=== PATIENT | female | born 1945 | race Caucasian/White ===

== ENCOUNTER → 2016-06-12 | Outpatient (CLI) | payer MEDICARE, BC ==
--- NOTE | 2016-06-12 22:29 | WWHP ---
DATE OF SERVICE: 06/12/2016 CHIEF COMPLAINT: The patient is here for her routine gynecologic exam. HPI: This is a 70-year-old G4, P3-0-1-3 with an LMP of approximately 2000. The patient states she has been experiencing some vulvar soreness. She has also noticed a small amount of mucus from the vagina, but denies any vaginal bleeding. She denies itching. She states this can come and go. She has not been sexually active for about 2 years. She says the vulvar lips around the vagina can be slightly red and she denies any white patches or white areas. She has noticed of these symptoms mostly this winter. Her last pelvic exam was more than 5 years ago. Last mammogram was done during the summer of 2015. She states this was normal. PAST MEDICAL HISTORY: Hypothyroidism, and chronic hypertension. She currently does not have a primary care physician. Her pattern room attendant is Dr. Paulson. MEDICATIONS: 1. Levothyroxine 75 mcg daily. 2. Atenolol 50 mg b.i.d. 3. Losartan. 4. Potassium 50 mg daily. 5. Potassium supplement 8 mEq daily. ALLERGIES: No known drug allergies. PAST SURGICAL HISTORY: Cholecystectomy 2010, cataract surgery 2007, tonsillectomy as a child. Colonoscopy 2011. Past OB history: 3 vaginal deliveries and one spontaneous . 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 SOCIAL HISTORY: She denies tobacco, alcohol, and drug use. She has been since 1999 and has not been sexually active since about 2013. She is retired. FAMILY HISTORY: Sister and maternal grandmother had breast cancer. Maternal aunt had uterine cancer. Both parents and brothers have or had diabetes. REVIEW OF SYSTEMS: Weight has been stable. She denies respiratory, cardiac, or GI problems. She denies maltreatment or falling. : She denies any significant problems with urinary leakage. PHYSICAL EXAM: Blood pressure initially was 195/80. Repeat blood pressure 164/84. Height 5 feet 5 inches. Weight 156 pounds. Temperature 97.5, pulse 75. This a well-developed, well-nourished white female who is alert and oriented x3 in no acute distress. HEENT is within normal limits. NECK: Supple without mass or thyromegaly. CHEST AND LUNGS: Clear to auscultation. HEART: Regular rate and rhythm. Breasts are without mass or discharge. Axillary exam is negative for adenopathy. BACK: Negative for CVA tenderness. ABDOMEN: Soft, nontender, without palpable masses. PELVIC EXAM: External genitalia reveals moderate air at moderate atrophy without lesions. The vulva is slightly erythematous. There is no leukoplakia noted. Cervix and vagina reveal mild to moderate atrophy without lesions. There is no evidence of prolapse. There is no unusual discharge. The uterus is midposition, nongravid size and nontender. There are no palpable adnexal masses or tenderness. Rectovaginal exam is negative for mass or tenderness and is negative for occult blood. EXTREMITIES: Nontender. IMPRESSION: 1. A 70-year-old menopausal female with vulvar symptoms consisting of soreness and mild erythema. This is probably secondary to atrophic changes and dry air-conditions may also be contributing to this. 2. Hypertension. PLAN: 1. Pap smear was performed. 2. Self-Breast examination was discussed. 3. The patient will be due for a mammogram later in the year. 4. Trial of Premarin vaginal cream, which she will use 1 to 2 grams intravaginally and to the external genitalia twice weekly. I have also recommended that she try to humidify the air with a humidifier and to increase fluid intake. The patient was instructed to call if her symptoms are not improving or if problems. We can consider a vulvar biopsy if her symptoms are not improving. 5. Osteoporosis prevention was discussed. I have recommended bone density screening. She states she would like to do this next year. 6. She is instructed to follow up with Dr. Paulson regarding her elevated blood pressure. She is aware that her blood pressure is elevated. She will also do home blood pressure checks and will follow up with Dr. Paulson as needed for blood pressure and heart conditions. 7. She will return in one year.
== END | disposition home or self-care (01) ==
LOC: WWCWWP 10:35
PROVIDERS: ATTEND Obstetrics & Gynecology

== ENCOUNTER → 2018-05-20 | Outpatient (CLI) | payer MEDICARE, BC ==
--- NOTE | 2018-05-20 14:52 | BD ---
EXAMINATION TYPE: Axial Bone Density DATE OF EXAM: 05/20/2018 COMPARISON: NONE CLINICAL HISTORY: Osteopenia screening. Postmenopausal female. Height: 65.5 Weight: 150.5 FRAX RISK QUESTIONS: Alcohol (3 or more units per day): no Family History (Parent hip fracture): no Glucocorticoids (More than 3mos): no (Ex: prednisone, prednisolone, methylprednisolone, dexamethasone, and hydrocortisone). History of Fracture in Adulthood: no Secondary Osteoporosis: 1. Type 1 Diabetes: no 2. Hyperthyroidism: no 3. Menopause before 45: no 4. Malnutrition: no 5. Chronic liver disease: no Rheumatoid Arthritis: no Current Tobacco Use: no RISK FACTORS HISTORY OF: Family History of Osteoporosis: no Active: yes Diet low in dairy products/other sources of calcium: no Postmenopausal woman: age 55 MEDICATIONS:blood pressure, diabetic med Thyroid Medications: thyroid How Lon years Additional History: EXAM MEASUREMENTS: Bone mineral densitometry was performed using the [employer] System. Bone mineral density as measured about the Lumbar spine is: ----- L1-L4(G/cm2): 1.149 T Score Values are as follows: ----- L2: -1.0 ----- L3: 0.4 ----- L4: 0.2 ----- L1-L4: -0.3 Bone mineral density : baseline Bone mineral density about the R hip (g/cm2): 0.767 Bone mineral density about the L hip (g/cm2): 0.795 T Score values are as follows: -----R Neck: -1.9 -----L Neck: -1.7 -----R Total: -1.2 -----L Total: -0.4 Bone mineral density: baseline IMPRESSION: Osteopenia (T Score between -2.5 and -1). There is slightly increased risk of fracture and the patient may be considered for treatment. Re-Screen 2-5 years. NOTE: T-SCORE=SD OF THE YOUNG ADULT MEAN.
--- NOTE | 2018-06-04 13:29 | MM ---
Reason for exam: screening (asymptomatic). History: Patient is postmenopausal. Family history of breast cancer in sister at age 65 and breast cancer in maternal grandmother. MG Screening Mammo w CAD Bilateral CC and MLO view(s) were taken. The breast tissue is heterogeneously dense. This may lower the sensitivity of mammography. There are benign round vascular calcifications. There is a focal asymmetry upper out right breast posterior third. ASSESSMENT: Incomplete: need additional imaging evaluation, BI-RAD 0 RECOMMENDATION: Special view mammogram of the right breast.
== END | disposition home or self-care (01) ==
LOC: RADMAMWWP 11:38
PROVIDERS: ATTEND Family Medicine
DX: Z12.31 Encounter for screening mammogram for malignant neoplasm of breast (principal); M85.80 Other specified disorders of bone density and structure, unspecified site
CPT/HCPCS: 77067; 77080

== ENCOUNTER → 2018-06-18 | Outpatient (CLI) | payer MEDICARE, BC ==
--- NOTE | 2018-06-19 10:48 | MM ---
Reason for exam: additional evaluation requested from abnormal screening. Last mammogram was performed 1 month ago. History: Patient is postmenopausal. Family history of breast cancer in sister at age 65 and breast cancer in maternal grandmother. Physical Findings: Nurse did not find any significant physical abnormalities on exam. MG 3D Work Up W/Cad RT CC and MLO view(s) were taken of the right breast. Prior study comparison: May 20, 2018, bilateral MG screening mammo w CAD. Density persists 7cm from nipple upper outer quadrant right breast. These results were verbally communicated with the patient and result sheet given to the patient on 06/18/18. ASSESSMENT: Incomplete: need additional imaging evaluation, BI-RAD 0 RECOMMENDATION: Ultrasound of the right breast.
--- NOTE | 2018-06-19 10:50 | USB ---
Reason for exam: additional evaluation requested from abnormal screening. History: Patient is postmenopausal. Family history of breast cancer in sister at age 65 and breast cancer in maternal grandmother. US Breast Workup Limited RT Right limited breast ultrasound including focal area of concern, retroareolar and axilla demonstrates a 0.8 x 0.5 x 1.0cm oval, irregular, solid, hypoechoic lesion at 10 o'clock. These results were verbally communicated with the patient and result sheet given to the patient on 06/18/18. ASSESSMENT: Suspicious, BI-RAD 4 RECOMMENDATION: Ultrasound core biopsy of the right breast. Called Dr. Chan with mammographic findings and has scheduled an appointment for the patient for 06/25/18 at 11:[address] Sood. Biopsy scheduled for 2:00. PRELIMINARY REPORT CALLED AND FAXED TO DR. SOOD ON 06/18/18.
== END | disposition home or self-care (01) ==
LOC: RADMAMWWP 14:48
PROVIDERS: ATTEND Family Medicine
DX: R92.8 Other abnormal and inconclusive findings on diagnostic imaging of breast (principal)
CPT/HCPCS: 77065; 76642; G0279; 77061

== ENCOUNTER → 2018-06-25 | Outpatient (CLI) | payer MEDICARE, BC ==
[2018-06-25 12:03] VITALS: BP 172/65; PULSE 56; RESP 18; TEMP 97.9; BMI 25.0
--- NOTE | 2018-06-25 12:43 | P.GSHP ---
History of Present Illness H&P Date: 06/25/18 Chief Complaint: abnormal mammogram and ultrasound of the right breast The patient is a 72-year-old white female who states that on a routine mammogram she was noted to have an area of concern in the right breast. Additional views of the right breast were then performed which led to an ultrasound of the right breast. On the ultrasound 8.8 x 0.5 cm irregular solid lesion was noted at 10:00. The patient does not feel anything of concern in her breasts. There is no nipple discharge or skin changes of concern. Patient has no recent trauma or infection in her breast. Family history: maternal grandmother: breast cancer in 60's sister: breast cancer in 60's Hormonal History: menarche: 14 : 4, 3 children 1 miscarrage, breast fed: yes, first born at 18 menopause: 55 BCP: 10 years hormones: none Past Surgical History: 1. gallbaldder 2. cataract Past Medical History: 1. HTN 2. Hypothyroid Social History: smoke: none alcohol: occasionally drugs: none - Constitutional Constitutional: Denies chills, Denies fever - EENT Comment: cataract surgery wears glasses Eyes: denies blurred vision, denies pain Ears: bilateral: decreased hearing (wears hearing aids), deny: tinnitus Ears, nose, mouth and throat: Denies headache, Denies sore throat - Breasts Breasts: bilateral: as per HPI - Cardiovascular Cardiovascular: Reports high blood pressure - Respiratory Respiratory: Denies cough, Denies 7 - Gastrointestinal Comment: had recent colon evaluation via cologuard Gastrointestinal: Reports diarrhea, Denies abdominal pain, Denies nausea, Denies vomiting - Genitourinary (Female) Genitourinary: Denies dysuria, Denies hematuria - Menstruation Menstruation: Reports postmenopausal - Musculoskeletal Musculoskeletal: Denies myalgias - Integumentary Integumentary: Denies pruritus, Denies rash - Neurological Neurological: Denies numbness, Denies weakness - Psychiatric Psychiatric: Denies anxiety, Denies depression - Endocrine Comment: hypothyroid diabetes - Hematologic/Lymphatic Comment: none - Allergic/Immunologic Allergic/Immunologic: Reports as per HPI, Reports seasonal allergies Past Medical History Past Medical History: Diabetes Mellitus, Thyroid Disorder History of Any Multi-Drug Resistant Organisms: None Reported Past Surgical History: Cholecystectomy Past Anesthesia/Blood Transfusion Reactions: No Reported Reaction Past Psychological History: No Psychological Hx Reported Smoking Status: Never smoker Past Alcohol Use History: Occasional Past Drug Use History: None Reported - Past Family History Sister(s) Family Medical History: Cancer Additional Family Medical History / Comment(s): breast cancer Medications and Allergies Home Medications Medication Instructions Recorded Confirmed Type Atenolol [Tenormin] 1 tab PO BID 06/18/18 06/25/18 History Calcium Carbonate/Vitamin D3 1 each PO DAILY 06/18/18 06/25/18 History [Calcium 500-Vit D3 200 Tablet] Fish Oil/Dha/Epa [Fish Oil 1,200 1 each PO DAILY 06/18/18 06/25/18 History mg Fish Oil] Levothyroxine Sodium [Synthroid] 75 mcg PO DAILY 06/18/18 06/25/18 History Losartan [Cozaar] 100 mg PO BID 06/18/18 06/25/18 History Multivit-Min/Iron/Folic/Lutein 1 each PO DAILY 06/18/18 06/25/18 History [Centrum Silver Women Tablet] Niacin 250 mg PO DAILY 06/18/18 06/25/18 History Potassium Chloride 8 meq PO DAILY 06/18/18 06/25/18 History metFORMIN HCL ER [Glucophage Xr] 500 mg PO DAILY 06/18/18 06/25/18 History Allergies Allergy/AdvReac Type Severity Reaction Status Date / Time No Known Allergies Allergy Verified 06/25/18 12:03 Surgical - Exam Vital Signs Temp Pulse Resp BP Pulse Ox 97.9 F 56 L 18 172/65 97 06/25/18 11:56 06/25/18 11:56 06/25/18 11:56 06/25/18 11:56 06/25/18 11:56 - General well developed, well nourished, no distress - Eyes normal ocular movement - ENT no hearing loss, no congestion - Neck no masses, trachea midline - Respiratory normal respiratory effort, clear to auscultation - Cardiovascular Rhythm: regular Heart Sounds: normal: S1, S2 - Abdomen Abdomen: soft, non tender, no guarding, no rigid, no rebound - Integumentary normal turgor - Neurologic no disoriented, no combative - Musculoskeletal normal gait, normal posture - Psychiatric oriented to time, oriented to person, oriented to place, speech is normal, memory intact Breast examination: Right breast: Multi-positional exam no dominant masses or nodules of concern Right axilla: No adenopathy of concern Left breast: Multi-positional exam dominant masses or nodules of concern Left axilla: No adenopathy of concern Results Mammogram and ultrasound results reviewed Assessment and Plan Assessment: Impression: 1. Radiographic abnormality right breast, abnormal mammogram and ultrasound 2. Hypertension 3. Diabetes 4. Hypothyroid 5. Status post cholecystectomy Plan: 1. Right breast ultrasound-guided core biopsy 2. Medical management of medical conditions 3. Follow-up in 1 week after ultrasound core biopsy Cc: Dr. Chan
== END ==
LOC: WWCWWP 11:05
PROVIDERS: ATTEND Surgery
DX: Z53.9 Procedure and treatment not carried out, unspecified reason (principal)

== ENCOUNTER → 2018-06-25 | Day surgery (SDC) | payer MEDICARE, BC ==
[2018-06-25 13:26] VITALS: RESP 16; BMI 25.0
[2018-06-25 14:42] VITALS: BP 148/75; PULSE 57; TEMP 97.6
--- NOTE | 2018-06-25 16:16 | USB ---
EXAMINATION TYPE: US biopsy breast VAD RT DATE OF EXAM: 06/25/2018 CLINICAL HISTORY: R92.8 ABN NELLIE. TECHNIQUE: Ultrasound guided core biopsy of right breast. COMPARISON: 06/18/2018 ultrasound FINDINGS: The procedure of ultrasound guided core biopsy was explained to the patient. Benefits, alternatives, and risks were discussed. An informed consent was then obtained. Timeout was performed. The patient was placed in supine positioning for imaging and for the procedure. The overlying skin was prepped and draped in usual sterile fashion. Lidocaine buffered with bicarbonate was used as anesthetic into the skin and subcutaneous tissue up to area of concern in the right breast. A chidi was made with surgical scalpel. Under ultrasound guidance, a 12-gauge vacuum assisted biopsy gun device was used to obtain 4 core samples. Following this, a biopsy clip was left in lesion. Post procedure mammogram was obtained. Clip is in the upper outer quadrant right breast. IMPRESSION: 1. Successful ultrasound-guided core biopsy right breast lesion. Recommendations: 1. Recommendations are pending pathology results. Pathology Results: Benign RIGHT BREAST AT 10:00 POSITION, BIOPSIES: Dense fibrous breast parenchyma and benign glandular components consistent with fibrocystic spectrum disease. Recommendation Follow up mammogram of the right breast in 6 months. KIANNA
--- NOTE | 2018-06-25 16:17 | MM ---
EXAMINATION TYPE: US biopsy breast VAD RT DATE OF EXAM: 06/25/2018 CLINICAL HISTORY: R92.8 ABN NELLIE. TECHNIQUE: Ultrasound guided core biopsy of right breast. COMPARISON: 06/18/2018 ultrasound FINDINGS: The procedure of ultrasound guided core biopsy was explained to the patient. Benefits, alt ernatives, and risks were discussed. An informed consent was then obtained. Timeout was performed. The patient was placed in supine positioning for imaging and for the procedure. The overlying skin w as prepped and draped in usual sterile fashion. Lidocaine buffered with bicarbonate was used as anes thetic into the skin and subcutaneous tissue up to area of concern in the right breast. A chidi was m gerardo with surgical scalpel. Under ultrasound guidance, a 12-gauge vacuum assisted biopsy gun device was used to obtain 4 core lara ples. Following this, a biopsy clip was left in lesion. Post procedure mammogram was obtained. Clip is in the upper outer quadrant right breast. IMPRESSION: 1. Successful ultrasound-guided core biopsy right breast lesion. Recommendations: 1. Recommendations are pending pathology results.
== END ==
LOC: RADUSWWP 13:04
PROVIDERS: ATTEND Surgery
DX: R92.8 Other abnormal and inconclusive findings on diagnostic imaging of breast (principal)
CPT/HCPCS: 88305; 77065; 19083; A4648; J2001

== ENCOUNTER → 2018-07-02 | Outpatient (CLI) | payer MEDICARE, BC ==
[2018-07-02 16:37] VITALS: BP 150/68; PULSE 60; RESP 18; TEMP 97.9; BMI 24.1
--- NOTE | 2018-07-03 10:03 | P.PN ---
Subjective Progress Note Date: 07/02/18 Principal diagnosis: Biopsy The patient is a 72-year-old white female who is status post a right breast ultrasound core biopsy and . Pathology revealed dense fibrous breast parenchyma and benign glandular components consistent with fibrocystic spectrum disease. The patient's ultrasound done at the time of the core biopsy was reviewed with radiology. There was some concern that the area targeted was adequately sampled. Secondary to the fact that the patient is not benign specific there was concern that this may be discordant with radiographic findings. The patient and her were given the option of a repeat core biopsy but they wished the area to be excised instead and have opted for a needle local and excisional biopsy. The patient preprocedure did not feel anything of concern in her breast there was no nipple discharge or skin changes of concern. The initial lesion have been described as a 0.8 x 0.5 x 1 cm irregular solid lesion at 10:00. The patient had had no recent trauma or infection in her breast. Family history: Paternal grandmother: Breast cancer in 60s Sr.: Breast cancer in 60s Hormonal history: Menarche: 14 : 4, 3 children one miscarriage, press-fit: Yes first. 18 Menopause: 55 control pills: 10 years Hormones: None Past surgical history: 1. Cholecystectomy 2. Cataract surgery Past medical history 1. Hypertension 2. Hypothyroidism Social history: Smoke: Negative Alcohol: Occasionally Drugs: Negative Review of systems: Constitutional no fever or chills HEENT decreased hearing with hearing aids Cardiovascular: Hypertension Respiratory: Negative GI: Negative : Postmenopausal Musculoskeletal: Negative Neurologic: Negative Psychiatric: Negative Endocrine: Hypothyroid, diabetes Objective - Vital Signs Vital signs: Vital Signs Temp 97.9 F 07/02/18 16:28 Pulse 60 07/02/18 16:28 Resp 18 07/02/18 16:28 BP 150/68 07/02/18 16:28 Pulse Ox 98 07/02/18 16:28 Intake & Output 07/02/18 07/03/18 07/03/18 18:59 06:59 18:59 Weight 65.771 kg - Exam BMI 24.1 - Constitutional General appearance: Present: average body habitus - EENT Eyes: Present: EOMI ENT: Present: hard of hearing - Neck Neck: Present: normal ROM - Respiratory Respiratory: bilateral: CTA - Cardiovascular Rhythm: regular Heart sounds: normal: S1, S2 - Gastrointestinal General gastrointestinal: Present: soft - Musculoskeletal Musculoskeletal: Present: gait normal - Psychiatric Psychiatric: Present: A&O x's 3, appropriate affect, intact judgment & insight - Additional findings Additional findings: Right breast exam: Area of core biopsy clean and dry no evidence of any infection Assessment and Plan Assessment: Impression: 1. Patient status post core biopsy right breast pathology felt to be discordant with radiographic findings 2. Patient with history of diabetes 3. History of hypo thyroid 4. Hypertension 5. Status post cholecystectomy Plan: 1. Right breast needle local and excisional biopsy secondary to discordant area in the right breast 2. Medical management of medical conditions Cc: Dr. Chan
== END | disposition home or self-care (01) ==
LOC: WWCWWP 16:08
PROVIDERS: ATTEND Surgery
DX: Z53.9 Procedure and treatment not carried out, unspecified reason (principal)

== ENCOUNTER 2018-07-21 08:08 | Day surgery (SDC) | payer MEDICARE, BC ==
[2018-07-20 08:54] VITALS: BMI 24.5
[~2018-07-21 08:08] MED LIST: HEPARIN SODIUM,PORCINE 5,000 UNIT/ML 1 ML VIAL SQ ONE; Pre Op ABX Message 1 EACH MISC MISCELLANE ONE
[2018-07-21 08:43] VITALS: RESP 16
[2018-07-21 08:53] LABS: Glucose,Whole Blood 133 mg/dL (75-99)
[2018-07-21] MEDS ORDERED: LACTATED RINGERS 1,000 ML IV ONE (08:57)
[2018-07-21] MEDS ORDERED: ONDANSETRON 4 MG/2 ML VIAL IVP ONE (08:58)
[2018-07-21] MEDS ORDERED: DEXAMETHASONE SOD PHOS (MDV) 100 MG/10 ML VIAL IVP ONE (08:58)
[2018-07-21] MEDS ORDERED: ALPRAZolam 0.25 MG TAB PO ONE (08:58)
[2018-07-21] MEDS ORDERED: LIDOCAINE 1% INJ 10MG/ML (20 ML MDV) SQ ONE ×3 (09:40→12:04)
[2018-07-21] MEDS ORDERED: SODIUM BICARB 4% 5 ML VIAL (0.48 MEQ/ML) MISCELLANE ONE (09:40)
[2018-07-21] MEDS ORDERED: HEPARIN SODIUM,PORCINE 5,000 UNIT/ML 1 ML VIAL SQ ONE (10:58)
[2018-07-21] MEDS ORDERED: LIDOCAINE 1% INJ 10MG/ML (20 ML MDV) ONE (11:24)
[2018-07-21] MEDS ORDERED: ePHEDrine SULFATE/0.9% NACL/PF 50 MG/5 ML SYRINGE IV ONE (11:24)
[2018-07-21] MEDS ORDERED: fentaNYL (PF) 50 MCG/ML 2 ML AMP ONE (11:24)
[2018-07-21] MEDS ORDERED: SUCCINYLCHOLINE CHLORIDE 100 MG/5 ML SYR IV ONE (11:24)
[2018-07-21] MEDS ORDERED: PROPOFOL 10 MG/ML 20 ML VIAL IV ONE (11:24)
[2018-07-21] MEDS ORDERED: MIDAZOLAM 2 MG/2 ML VIAL ONE (11:24)
--- NOTE | 2018-07-21 12:20 | P.OP ---
Date of Procedure: 07/21/18 Preoperative Diagnosis: Discordant needle biopsy right breast Postoperative Diagnosis: Same Procedure(s) Performed: Needle localization excisional biopsy right breast Anesthesia: DALE Surgeon: Amber Sood Estimated Blood Loss (ml): 5 IV fluids (ml): 400 Pathology: other (breast tissue) Condition: stable Disposition: PACU Indications for Procedure: Core biopsy right breast discordant from radiographic findings Operative Findings: Dense breast tissue Description of Procedure: The patient is a 72-year-old white female who is status post ultrasound-guided core biopsy of an area of concern in the right breast. The lesion was benign but felt to be discordant from the radiographic findings. After discussion with radiology was recommended she undergo needle localization and excisional biopsy of the area of concern. Following needle localization of area of concern the patient was brought to the operating room. Following induction of general anesthesia the right breast was prepped and draped in a sterile fashion. Incision was made and carried down to the shaft of the needle. This was grasped using an Allis. The surrounding tissue was excised using the electrocautery device. Several vessels were necessary to ligate with a 3-0 Vicryl suture. After we had completed the resection the specimen was painted for orientation. Radiograph of the specimen revealed that the area of concern had been removed. After assured that hemostasis was obtained deep tissues were closed using 3-0 Vicryl suture. Consult plastic tissue rearrangement was performed the superior aspect approximately 4 cm x 2 cm and the inferior aspect proximally 4 cm x 2 cm. Prior to closure of the cavity titanium clips were placed. The tissue was then swung into the correct location and closed using 3-0 Vicryl suture. The skin was closed using 4-0 Monocryl. The patient tolerated the procedure in stable condition. All instrument and sponge counts were correct at the end of the case.
--- NOTE | 2018-07-21 12:22 | P.DS ---
Providers Attending physician: Amber Sood Primary care physician: Joes Chan Plan - Discharge Summary Discharge Rx Participant: Yes New Discharge Prescriptions: No Action Multivit-Min/Iron/Folic/Lutein [Centrum Silver Women Tablet] 1 each PO DAILY Calcium Carbonate/Vitamin D3 [Calcium 500-Vit D3 200 Tablet] 1 each PO DAILY metFORMIN HCL ER [Glucophage Xr] 500 mg PO W/SUPPER Levothyroxine Sodium [Synthroid] 75 mcg PO DAILY Potassium Chloride 8 meq PO DAILY Atenolol [Tenormin] 50 mg PO BID Fish Oil/Dha/Epa [Fish Oil 1,200 mg Fish Oil] 1 each PO DAILY Losartan Potassium [Cozaar] 50 mg PO DAILY@1200 Discharge Medication List Atenolol [Tenormin] 50 mg PO BID 06/18/18 [History] Calcium Carbonate/Vitamin D3 [Calcium 500-Vit D3 200 Tablet] 1 each PO DAILY 06/18/18 [History] Fish Oil/Dha/Epa [Fish Oil 1,200 mg Fish Oil] 1 each PO DAILY 06/18/18 [History] Levothyroxine Sodium [Synthroid] 75 mcg PO DAILY 06/18/18 [History] Multivit-Min/Iron/Folic/Lutein [Centrum Silver Women Tablet] 1 each PO DAILY 06/18/18 [History] Potassium Chloride 8 meq PO DAILY 06/18/18 [History] metFORMIN HCL ER [Glucophage Xr] 500 mg PO W/SUPPER 06/18/18 [History] Losartan Potassium [Cozaar] 50 mg PO DAILY@1200 07/20/18 [History] Follow up Appointment(s)/Referral(s): Amber Sood MD [STAFF PHYSICIAN] - 1 Week Activity/Diet/Wound Care/Special Instructions: Do not drive today Wear bra at all times unless showering The shower after 48 hours Discharge Disposition: HOME SELF-CARE
[2018-07-21 12:40] VITALS: TEMP 97.4
--- NOTE | 2018-07-21 12:57 | MM ---
EXAMINATION TYPE: MG pre op needle loc RT DATE OF EXAM: 07/21/2018 10:20 AM COMPARISON: NONE HISTORY: Discordant ultrasound core biopsy Informed consent was obtained and all the patient's questions were answered. The clip in question was localized mammographically. The standard sterile technique was utilized, as well as appropriate local anesthesia with 1% Lidocaine and bicarbonate. Localization needle followed by placement of a guidewire was performed under mammographic guidance. Verification images demonstrate appropriate deployment of the guidewire. The patient tolerated the procedure well and left the department in stable condition. Specimen radiograph demonstrates the clip in question to reside within the specimen. IMPRESSION: Successful needle localization and open biopsy right breast with pathology results pending. Pathology Results: Benign RIGHT BREAST TISSUE, MAMMOGRAPHICALLY ORIENTED LUMPECTOMY: Fibrocystic changes with focal scar and reaction to prior biopsy. Negative for neoplasm. Recommendation Follow up mammogram of the right breast in 6 months. KIANNA
[2018-07-21 13:35] VITALS: BP 120/58; PULSE 69
--- NOTE | 2018-07-27 08:57 | MM ---
MG Surgical Specimen RT EXAMINATION TYPE: MG pre op needle loc RT DATE OF EXAM: 07/21/2018 10:20 AM COMPARISON: NONE HISTORY: Discordant ultrasound core biopsy Informed consent was obtained and all the patient's questions were answered. The clip in question was localized mammographically. The standard sterile technique was utilized, as well as appropriate local anesthesia with 1% Lidocaine and bicarbonate. Localization needle followed by placement of a guidewire was performed under mammographic guidance. Verification images demonstrate appropriate deployment of the guidewire. The patient tolerated the procedure well and left the department in stable condition. Specimen radiograph demonstrates the clip in question to reside within the specimen. IMPRESSION: Successful needle localization and open biopsy right breast with pathology results pending. RECOMMENDATION: Follow-up diagnostic mammogram of the right breast in 6 months. KIANNA
== END 2018-07-21 14:10 | disposition home or self-care (01) ==
LOC: OR 08:08
PROVIDERS: ATTEND Surgery
DX: N60.11 Diffuse cystic mastopathy of right breast (principal); I10 Essential (primary) hypertension; E03.9 Hypothyroidism, unspecified; E11.9 Type 2 diabetes mellitus without complications; E78.5 Hyperlipidemia, unspecified; Z85.3 Personal history of malignant neoplasm of breast; Z80.3 Family history of malignant neoplasm of breast; Z79.84 Long term (current) use of oral hypoglycemic drugs; Z79.890 Hormone replacement therapy; Z79.899 Other long term (current) drug therapy
CPT/HCPCS: 88307; 76098; 19281; J2250; J1644; J2405; J2001; J3010; J1100; J0330; J2704

== ENCOUNTER → 2018-07-30 | Outpatient (CLI) | payer MEDICARE, BC ==
[2018-07-30 16:40] VITALS: BP 159/71; PULSE 58; RESP 16; TEMP 97.5; BMI 24.5
--- NOTE | 2018-07-30 16:45 | P.PN ---
Subjective Progress Note Date: 07/30/18 The patient is a 73-year-old white female status post a right breast needle local excisional biopsy on . Pathology was negative for neoplasia. She had fibrocystic changes with focal scarring reaction to prior biopsy. The patient postoperatively is doing well without complaints. Objective - Vital Signs Vital signs: Vital Signs Temp 97.5 F L 07/30/18 16:35 Pulse 58 L 07/30/18 16:35 Resp 16 07/30/18 16:35 BP 159/71 07/30/18 16:35 Pulse Ox 96 07/30/18 16:35 - Constitutional General appearance: Present: average body habitus - EENT Eyes: Present: EOMI - Neck Neck: Present: normal ROM - Respiratory Respiratory: bilateral: CTA - Cardiovascular Rhythm: regular Heart sounds: normal: S1, S2 - Integumentary Integumentary: Present: normal turgor - Psychiatric Psychiatric: Present: A&O x's 3, appropriate affect, intact judgment & insight - Additional findings Additional findings: Right breast: Incision clean and dry mild swelling no evidence of any infection Assessment and Plan Assessment: Impression: 1. Right breast biopsy , pathology benign 2. Patient was recently diagnosed pulmonary hypertension following with Dr. Coates Plan: 1. Repeat right breast mammogram and physician exam in 6 months time 2. Medical management of medical conditions Cc:Dr. Jess Chan
== END | disposition home or self-care (01) ==
LOC: WWCWWP 16:23
PROVIDERS: ATTEND Surgery
DX: Z53.9 Procedure and treatment not carried out, unspecified reason (principal)

== ENCOUNTER → 2018-12-01 | Outpatient (CLI) | payer MEDICARE, BC ==
[2018-12-01 11:53] VITALS: BP 158/77; PULSE 51; RESP 16; TEMP 97.7; BMI 23.9
--- NOTE | 2018-12-01 12:37 | P.HPOB ---
History of Present Illness H&P Date: 12/01/18 Chief Complaint: The patient is here for her routine gynecologic exam. This is a 73-year-old with an LMP of 2000. The patient has been experiencing some vulvar and vaginal irritation. She is noticed this for about 4 days. She noticed a small spot of blood after rubbing the outside. She believes it came from the outer lips and not from inside of the vagina. She denies any bleeding prior to this episode. She denies any vaginal discharge, but thinks she may have noticed a slight odor. She is not sexually active. Review of Systems She is lost about 12 pounds over the past 2 1/2 years. She denies respiratory, cardiac and G.I. problems. She denies maltreatment or problems with falling. : she denies any significant problems with urinary leakage. Past Medical History Past Medical History: Diabetes Mellitus, Hearing Disorder / Deafness, Hypertension, Thyroid Disorder Additional Past Medical History / Comment(s): Hypothyroidism. Deaf left ear (hx mumps). 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 History of Any Multi-Drug Resistant Organisms: None Reported Past Surgical History: Cholecystectomy, Tonsillectomy Additional Past Surgical History / Comment(s): Colonoscopy 2011. cataracts, breast bx. Past Anesthesia/Blood Transfusion Reactions: No Reported Reaction Past Psychological History: No Psychological Hx Reported Smoking Status: Never smoker Past Alcohol Use History: Occasional (One or 2 per month.) Past Drug Use History: None Reported Additional History: She's been since 1999 and is not sexually active. S he is retired. - Past Family History Sister(s) Family Medical History: Cancer Additional Family Medical History / Comment(s): breast cancer. Maternal grandmother had breast cancer. Medications and Allergies Home Medications Medication Instructions Recorded Confirmed Type Atenolol [Tenormin] 50 mg PO BID 06/18/18 12/01/18 History Calcium Carbonate/Vitamin D3 1 each PO DAILY 06/18/18 12/01/18 History [Calcium 500-Vit D3 200 Tablet] Fish Oil/Dha/Epa [Fish Oil 1,200 1 each PO DAILY 06/18/18 12/01/18 History mg Fish Oil] Levothyroxine Sodium [Synthroid] 75 mcg PO DAILY 06/18/18 12/01/18 History Multivit-Min/Iron/Folic/Lutein 1 each PO DAILY 06/18/18 12/01/18 History [Centrum Silver Women Tablet] Potassium Chloride 8 meq PO DAILY 06/18/18 12/01/18 History metFORMIN HCL ER [Glucophage Xr] 500 mg PO W/SUPPER 06/18/18 12/01/18 History Losartan Potassium [Cozaar] 50 mg PO DAILY@1200 07/20/18 12/01/18 History Allergies Allergy/AdvReac Type Severity Reaction Status Date / Time No Known Allergies Allergy Verified 12/01/18 11:56 Exam Vital Signs Temp Pulse Resp BP Pulse Ox 12/01/18 11:44 97.7 F 51 L 16 158/77 96 Intake and Output 11/30/18 12/01/18 12/01/18 22:59 06:59 14:59 Other: Weight 65.317 kg Height 5'5", weight 144 pounds, BMI 24.0. This is a well-developed well-nourished white female who is alert and oriented times 3 in no acute distress. HEENT: Within normal limits. NECK: Supple without mass or thyromegaly. CHEST AND LUNGS: Clear to auscultation. HEART: Regular rate and rhythm. BREASTS: Are without mass or discharge. The right breast lumpectomy scar is well-heeled. AXILLARY EXAM: Negative for adenopathy. BACK: Negative for CVA tenderness. ABDOMEN: Soft, nontender, without palpable masses. PELVIC EXAM: Normal external genitalia with moderate atrophy. Cervix and vagina appear normal with mild to moderate atrophy. There is no unusual discharge. There is no evidence of prolapse. The uterus is midposition, nongravid size and nontender. There are no palpable adnexal masses or tenderness. RECTAL EXAM: rectovaginal exam is negative for mass or tenderness and is negative for occult blood. EXTREMITIES: Nontender. IMPRESSION: 1. 73-year-old menopausal female with vulvar and vaginal irritation with no evidence of vaginitis on exam. 2. Recent single spot of blood after rubbing or scratching the vulvar area with no evidence of postmenopausal uterine bleeding on examination. The blood most likely represents a small amount of bleeding from the vulvar. PLAN: 1. Pap smear was performed. 2. Self breast awareness was discussed with the patient. 3. Mammograms as per Dr. Geovanny Berrios has seen her recently for a breast biopsy and 07/21/2018. 4. Kenalog 0.1% cream BID PRN for vulvar irritation. The patient was instructed, she continues to have irritation symptoms or any postmenopausal bleeding. The electronic prescription for this will be sentenced to [place] dr Avalos. 5. She does get flu shots in the fall. 6. The patient was advised to return in 1-2 years for her well woman examination and PRN.
== END | disposition home or self-care (01) ==
LOC: WWCWWP 11:14
PROVIDERS: ATTEND Obstetrics & Gynecology
DX: Z53.9 Procedure and treatment not carried out, unspecified reason (principal)